=== PATIENT | male | born 1955 | race Caucasian/White ===

== ENCOUNTER 2020-04-09 19:25 | Emergency (ER) | payer SELFPAY ==
[2020-04-09 19:39] VITALS: BP 141/63
--- NOTE | 2020-04-09 21:28 | Event Note ---
ED Screening Note Date of service: 04/09/20 Time: 21:23 ED Screening Note: Patient presents with complaints of chest pain today Brought in by EMS from a quick trip Patient states he no longer wishes to be assessed for his chest pain and that his chest pain has resolved He denies any previous history of heart problems or MIs Reiterated to patient it is important for him to be assessed for his chest pain, patient continues to decline treatment Patient to sign out AMA This initial assessment/diagnostic orders/clinical plan/treatment(s) is/are subject to change based on patients health status, clinical progression and re- assessment by fellow clinical providers in the ED. Further treatment and workup at subsequent clinical providers discretion. Patient/guardian urged not to elope from the ED as their condition may be serious if not clinically assessed and managed. Initial orders include: Patient to sign out AMA
[2020-04-09 23:00] LABS: Basophils % (Auto) 0.6 % (0.0-1.8); Eosinophils # (Auto) 0.3 K/mm3 (0.0-0.4); Eosinophils % (Auto) 3.7 % (0.0-4.3); Hematocrit 39.7 % (35.5-45.6); Hemoglobin 12.9 gm/dl (11.8-15.2); Lymphocytes # (Auto) 1.5 K/mm3 (1.2-5.4); Lymphocytes % (Auto) 17.7 % (13.4-35.0); Mean Corpuscular HGB Conc 32 % (32-34); Mean Corpuscular Volume 94 fl (84-94); Monocytes # (Auto) 0.9 K/mm3 (0.0-0.8); Monocytes % (Auto) 10.1 % (0.0-7.3); Platelet Count 216 K/mm3 (140-440); Red Blood Count 4.22 M/mm3 (3.65-5.03); Red Cell Distribution Width 16.9 % (13.2-15.2)
[2020-04-09 23:14] LABS: Calcium 8.7 mg/dL (8.4-10.2)
--- NOTE | 2020-04-10 03:04 | Emergency Department Report ---
ED General Adult HPI - General Chief complaint: Weakness Stated complaint: GENERAL WEAKNESS Time Seen by Provider: 04/09/20 21:20 Source: patient, EMS Mode of arrival: Stretcher Limitations: No Limitations - History of Present Illness Initial comments: 64-year-old male presents to the emergency room reporting that he felt hot and weak and had chest pain all day. Patient states he has no chest pain now and reports he feels better and wants to go home. It was reported by EMS that they picked him up at a [facility]. Patient has a past medical history of a CVA [place] end-stage renal disease congestive heart failure and a DVT. Patient states that he has not been able to take his evening medications since he has been here. Patient had recently been seen by his primary care provider at [facility] on 04/04/2020. -: This morning Location: chest Severity scale (0 -10): 0 Associated Symptoms: chest pain, weakness. denies: cough, diaphoresis, headaches, loss of appetite, malaise, nausea/vomiting, shortness of breath, syncope Treatments Prior to Arrival: none - Related Data Allergies Allergy/AdvReac Type Severity Reaction Status Date / Time bee venom protein (honey bee) Allergy Hives Verified 04/09/20 19:41 ED Review of Systems ROS: Stated complaint: GENERAL WEAKNESS Other details as noted in HPI ED Past Medical Hx - Past Medical History Previous Medical History?: Yes Hx CVA: Yes - Surgical History Past Surgical History?: Yes Hx Pacemaker: Yes - Social History Smoking Status: Current Some Day Smoker Substance Use Type: None ED Physical Exam - General Limitations: No Limitations General appearance: alert, in no apparent distress - Head Head exam: Present: atraumatic, normocephalic - Eye Eye exam: Present: normal appearance - ENT ENT exam: Present: mucous membranes moist - Neck Neck exam: Present: normal inspection - Respiratory Respiratory exam: Present: normal lung sounds bilaterally. Absent: respiratory distress - Cardiovascular Cardiovascular Exam: Present: regular rate, normal rhythm. Absent: systolic murmur, diastolic murmur, rubs, gallop - GI/Abdominal GI/Abdominal exam: Present: soft, normal bowel sounds - Rectal Rectal exam: Present: deferred - Extremities Exam Extremities exam: Present: normal inspection - Back Exam Back exam: Present: normal inspection - Neurological Exam Neurological exam: Present: alert, oriented X3, normal gait - Expanded Neurological Exam Expanded Cranial nerves: EOM's Intact: Normal, Gag Reflex: Normal, Tongue Deviation: Normal, Nystagmus: Normal, Facial Sensation: Normal, Facial Palsy with Forehead Movement: Normal, Facial Palsy without Forehead Movement: Normal Cerebellar function: Finger to Nose: Normal, Heel to Beal: Normal, Romberg: Normal Upper motor neuron: Jarod Neglect: Normal, Pronator Drift: Normal, Sensory Extinction: Normal Motor strength exam: RUE: 4, LUE: 4, RLE: 4, LLE: 4 Best Eye Response ([place]): (4) open spontaneously Best Motor Response (Lois): (6) obeys commands Best Verbal Response ([place]): (5) oriented Lois Total: 15 - Psychiatric Psychiatric exam: Present: normal affect, normal mood - Skin Skin exam: Present: warm, dry, intact, ecchymosis (Multiple areas on his forearm). Absent: rash ED Course Vital Signs 04/09/20 04/10/20 19:34 03:05 Temperature 98.5 F Pulse Rate 65 71 Respiratory 18 17 Rate Blood Pressure 141/63 O2 Sat by Pulse 96 99 Oximetry ED Medical Decision Making - Lab Data Result diagrams: 04/09/20 22:27 04/09/20 22:27 - Medical Decision Making 64-year-old male presents to the emergency room reporting that he felt hot and weak and had chest pain all day. Patient states he has no chest pain now and reports he feels better and wants to go home. It was reported by EMS that they picked him up at a [facility]. Patient has a past medical history of a CVA [place] end-stage renal disease congestive heart failure and a DVT. Patient states that he has not been able to take his evening medications since he has been here. Patient had recently been seen by his primary care provider at [facility] on 04/04/2020. Patient currently has no chest pain no shortness of breath requesting to be discharged to go home. Patient's vital signs are stable. Exam is within normal limits. Patient signed AMA. Critical care attestation.: If time is entered above; I have spent that time in minutes in the direct care of this critically ill patient, excluding procedure time. ED Disposition Clinical Impression: Chest pain Disposition: DC-07 LEFT AGAINST MED ADVICE Is pt being admited?: No Does the pt Need Aspirin: No Condition: Stable Instructions: Chest Pain (ED) Referrals: AMY BERNARD MD [Primary Care Provider] - 3-5 Days Forms: AMA Form
== END 2020-04-10 03:06 | disposition left against medical advice (07) ==
LOC: ED 19:25
DX: R07.89 Other chest pain (principal); R53.1 Weakness; F17.200 Nicotine dependence, unspecified, uncomplicated; Z86.73 Personal history of transient ischemic attack (TIA), and cerebral infarction without residual deficits
CPT/HCPCS: 36415; 80048; 85025

== ENCOUNTER 2020-05-03 19:56 | Emergency (ER) | payer MEDICAID ==
--- NOTE | 2020-05-03 20:21 | Event Note ---
ED Screening Note ED Screening Note: here 8-8 called 911 for hip pain when they got there he co cp angry and constricted wont give info told me he fell today on l hip and it is broke and then added his heart hearts ill appearing not kept This initial assessment/diagnostic orders/clinical plan/treatment(s) is/are subject to change based on patients health status, clinical progression and re- assessment by fellow clinical providers in the ED. Further treatment and workup at subsequent clinical providers discretion. Patient/guardian urged not to elope from the ED as their condition may be serious if not clinically assessed and managed. Initial orders include: labs ua xray
--- NOTE | 2020-05-03 21:23 | XRay Report ---
LEFT HIP 2 VIEW(S) INDICATION / CLINICAL INFORMATION: pain sp fall COMPARISON: None available. FINDINGS: BONES / JOINT(S): No acute fracture or subluxation. 'S mild left hip joint space narrowing. SOFT TISSUES: Moderate atherosclerotic calcifications throughout the visualized iliac and femoral art eries bilaterally. ADDITIONAL FINDINGS: None. Signer Name: Tiana Johnson MD Signed: 05/03/2020 9:18 PM Workstation Name: [id number]
--- NOTE | 2020-05-03 21:36 | XRay Report ---
CHEST 2 VIEWS INDICATION / CLINICAL INFORMATION: cp. COMPARISON: 04/28/20 FINDINGS: SUPPORT DEVICES: None. HEART / MEDIASTINUM: Stable. Moderate size retrocardiac hiatal hernia is unchanged. LUNGS / PLEURA: No significant pulmonary or pleural abnormality. No pneumothorax. ADDITIONAL FINDINGS: No significant additional findings. IMPRESSION: 1. No acute findings. 2. Moderate-sized hilar hernia is unchanged. Signer Name: Tiana Johnson MD Signed: 05/03/2020 9:31 PM Workstation Name: [id number]
[2020-05-03 21:44] LABS: Basophils # (Auto) 0.1 K/mm3 (0.0-0.1); Basophils % (Auto) 1.1 % (0.0-1.8); Eosinophils # (Auto) 0.5 K/mm3 (0.0-0.4); Eosinophils % (Auto) 6.1 % (0.0-4.3); Hematocrit 36.6 % (35.5-45.6); Hemoglobin 12.3 gm/dl (11.8-15.2); Lymphocytes # (Auto) 1.3 K/mm3 (1.2-5.4); Lymphocytes % (Auto) 15.8 % (13.4-35.0); Mean Corpuscular HGB Conc 34 % (32-34); Mean Corpuscular Volume 93 fl (84-94); Monocytes # (Auto) 0.8 K/mm3 (0.0-0.8); Monocytes % (Auto) 9.5 % (0.0-7.3); Platelet Count 268 K/mm3 (140-440); Red Blood Count 3.93 M/mm3 (3.65-5.03)
[2020-05-03 21:51] LABS: Alanine Aminotransferase 11 units/L (7-56); Albumin 3.8 g/dL (3.9-5); BUN/Creatinine Ratio 18; Blood Urea Nitrogen 22 mg/dL (9-20); Calcium 9.6 mg/dL (8.4-10.2); Hemolysis Index 30
[2020-05-04] MEDS ORDERED: ACETAMINOPHEN 325 MG TAB PO ONE (02:44)
[2020-05-04 02:50] VITALS: BP 140/74
--- NOTE | 2020-05-04 02:52 | Emergency Department Report ---
ED Fall HPI - General Chief Complaint: Extremity Injury, Lower Stated Complaint: LEFT HIP PAIN Time Seen by Provider: 05/03/20 20:21 Source: patient Mode of arrival: Ambulatory - History of Present Illness Initial Comments: Patient is a 64-year-old male who presents emergency room after a slip and fall that occurred earlier today. He states that he slipped on the concrete and fell. He states he is having right shoulder pain, left hip pain, he reports he hit his head. He denies any headache, loss of consciousness, vomiting, numbness, weakness, vision changes, neck pain, back pain. He is ambulatory. He denies any chest pain, shortness of breath, lightheadedness, dizziness. He denies any symptoms prior to the fall just states that he slipped. Past medical history of CVA and AR. Allergy to bee venom. - Related Data Home Medications Medication Instructions Recorded Confirmed Last Taken AtorvaSTATin [Lipitor] 40 mg PO QHS 04/30/20 04/30/20 Unknown Clopidogrel [Plavix] 75 mg PO QDAY 04/30/20 04/30/20 Unknown Rivaroxaban [Xarelto] 20 mg PO DAILY 04/30/20 04/30/20 Unknown donepeziL [Aricept] 5 mg PO QHS 04/30/20 04/30/20 Unknown Previous Rx's Medication Instructions Recorded Last Taken Type Methimazole [Tapazole] 5 mg PO Q12H #30 tablet 05/02/20 Unknown Rx Metoprolol [Lopressor TAB] 25 mg PO BID #60 tablet 05/02/20 Unknown Rx Acetaminophen [Tylenol] 650 mg PO Q8HR PRN #20 capsule 05/04/20 Unknown Rx Allergies Allergy/AdvReac Type Severity Reaction Status Date / Time bee venom protein (honey bee) Allergy Hives Verified 04/09/20 19:41 ED Review of Systems ROS: Stated complaint: LEFT HIP PAIN Other details as noted in HPI Comment: All other systems reviewed and negative ED Past Medical Hx - Past Medical History Previous Medical History?: Yes Hx CVA: Yes Hx Congestive Heart Failure: No Hx Diabetes: No Hx Asthma: No - Surgical History Hx Pacemaker: Yes - Social History Smoking Status: Current Every Day Smoker Substance Use Type: Alcohol - Medications Home Medications: Home Medications Medication Instructions Recorded Confirmed Last Taken Type AtorvaSTATin [Lipitor] 40 mg PO QHS 04/30/20 04/30/20 Unknown History Clopidogrel [Plavix] 75 mg PO QDAY 04/30/20 04/30/20 Unknown History Rivaroxaban [Xarelto] 20 mg PO DAILY 04/30/20 04/30/20 Unknown History donepeziL [Aricept] 5 mg PO QHS 04/30/20 04/30/20 Unknown History Methimazole [Tapazole] 5 mg PO Q12H #30 tablet 05/02/20 Unknown Rx Metoprolol [Lopressor TAB] 25 mg PO BID #60 tablet 05/02/20 Unknown Rx Acetaminophen [Tylenol] 650 mg PO Q8HR PRN #20 capsule 05/04/20 Unknown Rx ED Physical Exam - General Limitations: No Limitations General appearance: alert, in no apparent distress - Head Head exam: Present: atraumatic, normocephalic - Eye Eye exam: Present: normal appearance, PERRL, EOMI. Absent: periorbital swelling, periorbital tenderness Pupils: Present: normal accommodation - ENT ENT exam: Present: mucous membranes moist, other (no racoon eyes, no [place] signs) - Neck Neck exam: Present: normal inspection, full ROM. Absent: tenderness - Respiratory Respiratory exam: Present: normal lung sounds bilaterally. Absent: respiratory distress, wheezes, rales, rhonchi, stridor, chest wall tenderness, accessory muscle use, decreased breath sounds, prolonged expiratory - Cardiovascular Cardiovascular Exam: Present: regular rate, normal rhythm, normal heart sounds. Absent: systolic murmur, diastolic murmur, rubs, gallop - GI/Abdominal GI/Abdominal exam: Present: soft, normal bowel sounds. Absent: distended, tenderness, guarding, rebound, rigid - Extremities Exam Extremities exam: Present: other (mild right anterior shoulder ttp, FROM of the RUE, no sulcus sign, no deformity, clavicles are equal, no clavicular ttp, no bony ttp to the LLE, FROM of the LLE with mild discomfort upon full flexion of the hip, no deformity, no obvious joint laxity, pt is neurovascularly intact throughout) - Back Exam Back exam: Present: normal inspection, full ROM. Absent: paraspinal tenderness, vertebral tenderness - Neurological Exam Neurological exam: Present: alert, oriented X3, CN II-XII intact, normal gait. Absent: motor sensory deficit - Psychiatric Psychiatric exam: Present: normal affect, normal mood - Skin Skin exam: Present: warm, dry, intact ED Course Vital Signs 05/04/20 02:48 Temperature 99.1 F Pulse Rate 65 Respiratory 21 Rate Blood Pressure 140/74 [Right] O2 Sat by Pulse 100 Oximetry ED Medical Decision Making - Lab Data Result diagrams: 05/03/20 21:14 05/03/20 21:14 Lab Results 05/03/20 05/03/20 Range/Units 21:14 21:14 WBC 8.4 (4.5-11.0) K/mm3 RBC 3.93 (3.65-5.03) M/mm3 Hgb 12.3 (11.8-15.2) gm/dl Hct 36.6 (35.5-45.6) % MCV 93 (84-94) fl MCH 31 (28-32) pg MCHC 34 (32-34) % RDW 16.0 H (13.2-15.2) % Plt Count 268 (140-440) K/mm3 Lymph % (Auto) 15.8 (13.4-35.0) % [place] % (Auto) 9.5 H (0.0-7.3) % Eos % (Auto) 6.1 H (0.0-4.3) % Baso % (Auto) 1.1 (0.0-1.8) % Lymph # 1.3 (1.2-5.4) K/mm3 [place] # 0.8 (0.0-0.8) K/mm3 Eos # 0.5 H (0.0-0.4) K/mm3 Baso # 0.1 (0.0-0.1) K/mm3 Seg Neutrophils % 67.5 (40.0-70.0) % Seg Neutrophils # 5.6 (1.8-7.7) K/mm3 Sodium 140 (137-145) mmol/L Potassium 4.1 (3.6-5.0) mmol/L Chloride 102.3 (98-107) mmol/L Carbon Dioxide 23 (22-30) mmol/L Anion Gap 19 mmol/L BUN 22 H (9-20) mg/dL Creatinine 1.2 (0.8-1.3) mg/dL Estimated GFR > 60 ml/min BUN/Creatinine Ratio 18 % Glucose 113 H (75-100) mg/dL Calcium 9.6 (8.4-10.2) mg/dL Total Bilirubin 0.50 (0.1-1.2) mg/dL AST 18 (5-40) units/L ALT 11 (7-56) units/L Alkaline Phosphatase 92 (35-129) units/L Troponin T < 0.010 (0.00-0.029) ng/mL Total Protein 6.6 D (6.3-8.2) g/dL Albumin 3.8 L (3.9-5) g/dL Albumin/Globulin Ratio 1.4 % - EKG Data EKG shows normal: sinus rhythm, axis, intervals Rate: normal - EKG Data 05/04/20 03:00 no STEMI - Radiology Data Radiology results: report reviewed LEFT HIP 2 VIEW(S) INDICATION / CLINICAL INFORMATION: pain sp fall COMPARISON: None available. FINDINGS: BONES / JOINT(S): No acute fracture or subluxation. 'S mild left hip joint space narrowing. SOFT TISSUES: Moderate atherosclerotic calcifications throughout the visualized iliac and femoral arteries bilaterally. ADDITIONAL FINDINGS: None. Signer Name: Tiana Johnson MD Signed: 05/03/2020 9:18 PM Workstation Name: [id number] Transcribed By: MARTIN Dictated By: Connor Johnson MD Electronically Authenticated By: Connor Johnson MD Signed Date/Time: 05/03/202117 DD/ 16 TD/TT: CHEST 2 VIEWS INDICATION / CLINICAL INFORMATION: cp. COMPARISON: 04/28/20 FINDINGS: SUPPORT DEVICES: None. HEART / MEDIASTINUM: Stable. Moderate size retrocardiac hiatal hernia is unchanged. LUNGS / PLEURA: No significant pulmonary or pleural abnormality. No pneumothorax. ADDITIONAL FINDINGS: No significant additional findings. IMPRESSION: 1. No acute findings. 2. Moderate-sized hilar hernia is unchanged. Signer Name: Tiana Johnson MD Signed: 05/03/2020 9:31 PM Workstation Name: [id number] Transcribed By: DT Dictated By: Connor Johnson MD Electronically Authenticated By: Connor Johnson MD Signed Date/Time: 05/03/202130 DD/ 29 TD/TT: CT head/brain wo con INDICATION / CLINICAL INFORMATION: Patient fell and hit head. Positive L.O.C.. TECHNIQUE: All CT scans at this location are performed using CT dose reduction for ALARA by means of automated exposure control. COMPARISON: 05/01/2020 FINDINGS: Cerebral atrophy is present with microvascular angiopathy. No mass or mass effect is seen. There is no evidence of intracranial large. No large area of infarction is identified. No fracture is seen. Visualized paranasal sinuses are clear. IMPRESSION: Cerebral atrophy with microvascular angiopathy. No acute findings Signer Name: Onesimo Burk MD FACR Signed: 05/04/2020 3:10 AM Workstation Name: [id number] Transcribed By: MS Dictated By: Onesimo Burk MD Electronically Authenticated By: Onesimo Burk MD Signed Date/Time: 05/04/20309 DD/ 7 TD/TT: RIGHT SHOULDER 3 VIEWS INDICATION / CLINICAL INFORMATION: fall, right shoulder pain. COMPARISON: None available. FINDINGS: No significant skeletal abnormality Signer Name: Onesimo Burk MD FACR Signed: 05/04/2020 3:51 AM Workstation Name: [id number] Transcribed By: MS Dictated By: Onesimo Burk MD Electronically Authenticated By: Onesimo Burk MD Signed Date/Time: 05/04/20350 DD/ 0 TD/TT: - Medical Decision Making Patient is a 64-year-old male who presents emergency room after a slip and fall that occurred earlier today. He states that he slipped on the concrete and fell. He states he is having right shoulder pain, left hip pain, he reports he hit his head. He denies any headache, loss of consciousness, vomiting, numbness, weakness, vision changes, neck pain, back pain. He is ambulatory. He denies any chest pain, shortness of breath, lightheadedness, dizziness. He denies any symptoms prior to the fall just states that he slipped. Past medical history of CVA and AR. Allergy to bee venom. VSS. on exam: mild right anterior shoulder ttp, FROM of the RUE, no sulcus sign, no deformity, clavicles are equal, no clavicular ttp, no bony ttp to the LLE, FROM of the LLE with mild discomfort upon full flexion of the hip, no deformity, no obvious joint laxity, pt is neurovascularly intact throughout, no focal neuro deficits, no midline or paraspinal C-spine, T-spine, L-spine tenderness palpation, no step-offs, no deformities, no raccoon eyes, no [place] signs. XR left hip: BONES / JOINT(S): No acute fracture or subluxation. 'S mild left hip joint space narrowing. SOFT TISSUES: Moderate atherosclerotic calcifications throughout the visualized iliac and femoral arteries bilaterally. ADDITIONAL FINDINGS: None. CXR: 1. No acute findings. 2. Moderate-sized hilar hernia is unchanged. CT head: Cerebral atrophy with microvascular angiopathy. No acute findings. XR right shoulder: No significant skeletal abnormality. appears pt may have told triage provider about chest pain, but he denies CP. labs are normal. EKG shows no STEMI and no acute ischemia. pt given tylenol and symptoms improved. pt given prescription for tylenol. advised pt Please take medication as prescribed. May use ice pack, heating pad, rest, Epson salt bath. Follow-up with a primary care doctor for reexamination. Return to emergency room for any new or worsening symptoms. Critical care attestation.: If time is entered above; I have spent that time in minutes in the direct care of this critically ill patient, excluding procedure time. ED Disposition Clinical Impression: Left hip pain Fall Qualifiers: Encounter type: initial encounter Qualified Code(s): W19.XXXA - Unspecified fall, initial encounter Right shoulder pain Qualifiers: Chronicity: acute Qualified Code(s): M25.511 - Pain in right shoulder Minor head injury Qualifiers: Encounter type: initial encounter Qualified Code(s): S09.90XA - Unspecified injury of head, initial encounter Disposition: DC- TO HOME OR SELFCARE Is pt being admited?: No Does the pt Need Aspirin: No Condition: Stable Instructions: Muscle Strain (ED), Arthralgia (ED) Additional Instructions: Please take medication as prescribed. May use ice pack, heating pad, rest, Epson salt bath. Follow-up with a primary care doctor for reexamination. Return to emergency room for any new or worsening symptoms. Prescriptions: Acetaminophen [Tylenol] 650 mg PO Q8HR PRN #20 capsule PRN Reason: pain Referrals: PRIMARY CARE, [Primary Care Provider] - 2-3 Days Print Language: SAMI
--- NOTE | 2020-05-04 03:14 | Cat Scan Report ---
CT head/brain wo con INDICATION / CLINICAL INFORMATION: Patient fell and hit head. Positive L.O.C.. TECHNIQUE: All CT scans at this location are performed using CT dose reduction for ALARA by means of automated e xposure control. COMPARISON: 05/01/2020 FINDINGS: Cerebral atrophy is present with microvascular angiopathy. No mass or mass effect is seen. There is n o evidence of intracranial large. No large area of infarction is identified. No fracture is seen. Vis ualized paranasal sinuses are clear. IMPRESSION: Cerebral atrophy with microvascular angiopathy. No acute findings Signer Name: Onesimo Burk MD FACR Signed: 05/04/2020 3:10 AM Workstation Name: [id number]
--- NOTE | 2020-05-04 03:56 | XRay Report ---
RIGHT SHOULDER 3 VIEWS INDICATION / CLINICAL INFORMATION: fall, right shoulder pain. COMPARISON: None available. FINDINGS: No significant skeletal abnormality Signer Name: Onesimo Burk MD FACR Signed: 05/04/2020 3:51 AM Workstation Name: [id number]
== END 2020-05-04 16:35 | disposition home or self-care (01) ==
LOC: ED 19:56
DX: S09.90XA Unspecified injury of head, initial encounter (principal); M25.511 Pain in right shoulder; M25.552 Pain in left hip; F17.200 Nicotine dependence, unspecified, uncomplicated; Z79.899 Other long term (current) drug therapy; Z88.8 Allergy status to other drugs, medicaments and biological substances; W17.89XA Other fall from one level to another, initial encounter; Y93.89 Activity, other specified; Y92.89 Other specified places as the place of occurrence of the external cause; Y99.8 Other external cause status
CPT/HCPCS: 36415; 70450; 71046; 80053; 84484; 85025; 93005

== ENCOUNTER 2020-05-13 00:19 | Emergency (ER) | payer MEDICAID ==
[2020-05-13 01:28] LABS: Basophils % (Auto) 0.5 % (0.0-1.8); Eosinophils # (Auto) 0.2 K/mm3 (0.0-0.4); Eosinophils % (Auto) 2.6 % (0.0-4.3); Hematocrit 35.5 % (35.5-45.6); Lymphocytes # (Auto) 1.4 K/mm3 (1.2-5.4); Lymphocytes % (Auto) 17.8 % (13.4-35.0); Mean Corpuscular HGB Conc 34 % (32-34); Mean Corpuscular Volume 94 fl (84-94); Monocytes # (Auto) 0.7 K/mm3 (0.0-0.8); Monocytes % (Auto) 9.5 % (0.0-7.3); Platelet Count 282 K/mm3 (140-440); Red Blood Count 3.77 M/mm3 (3.65-5.03); Red Cell Distribution Width 16.6 % (13.2-15.2)
--- NOTE | 2020-05-13 01:42 | XRay Report ---
CHEST 1 VIEW INDICATION / CLINICAL INFORMATION: Chest Pain. COMPARISON: 05/03/2020 FINDINGS: SUPPORT DEVICES: Pacemaker device is stable in position. HEART / MEDIASTINUM: No significant abnormality. LUNGS / PLEURA: No significant pulmonary or pleural abnormality. No pneumothorax. ADDITIONAL FINDINGS: Probable hiatal hernia. IMPRESSION: 1. No acute findings. No interval change. Signer Name: Zeinab Palmer MD Signed: 05/13/2020 1:37 AM Workstation Name: [id number]
[2020-05-13 01:51] LABS: BUN/Creatinine Ratio 17; Blood Urea Nitrogen 26 mg/dL (9-20); Calcium 9.3 mg/dL (8.4-10.2); Hemolysis Index 12
--- NOTE | 2020-05-13 03:03 | Emergency Department Report ---
ED Chest Pain HPI - General Chief Complaint: Chest Pain Stated Complaint: RT SIDE PAIN PUI?: No Time Seen by Provider: 05/13/20 02:56 Source: patient, EMS Mode of arrival: Ambulatory Limitations: Physical Limitation - History of Present Illness Initial Comments: Patient is a 64-year-old male that presents emergency room with complaints of right-sided chest pain. Patient states his chest pain started this morning. Patient states he was seen at [facility] and evaluated and discharged. Patient states that his pain worsened and so he called the ambulance to bring him to the hospital for evaluation. Patient states the pain is a 9 out of 10 and is in his right chest. Patient states the pain is better with rest and wor se with movement and palpation. Patient denies fever chills. Patient denies shortness of breath. Patient denies nausea and vomiting. Patient denies anxiety. Patient denies diaphoresis. Patient states he was instructed to go to his primary care and he was on his way to see his primary care and he felt the pain was too sharp. Patient denies recent travel. Patient denies recent international travel. Patient denies exposure to the novel coronavirus. Patient denies sick contacts. Patient denies fever and chills. Patient denies cough. Patient denies diarrhea. Patient denies coming in contact with anybody with symptoms of the novel coronavirus. MD Complaint: chest pain -: Sudden Pain Location: right chest Pain Radiation: RUE Severity: severe Severity scale (0 -10): 9 Quality: sharp Consistency: constant Improves With: rest Worsens With: palpation, movement re: denies: nausea, vomting, diaphoresis, dyspnea, sense of impending doom Other Symptoms: denies: cough, fever, syncope, rash, acid taste in mouth, leg swelling, palpitations, burping Treatments Prior to Arrival: none Aspirin use within the Past 7 Days: (1) Yes - Related Data On Oral Contraceptives: No Home Medications Medication Instructions Recorded Confirmed Last Taken AtorvaSTATin [Lipitor] 40 mg PO QHS 04/30/20 04/30/20 Unknown Clopidogrel [Plavix] 75 mg PO QDAY 04/30/20 04/30/20 Unknown Rivaroxaban [Xarelto] 20 mg PO DAILY 04/30/20 04/30/20 Unknown donepeziL [Aricept] 5 mg PO QHS 04/30/20 04/30/20 Unknown Previous Rx's Medication Instructions Recorded Last Taken Type Methimazole [Tapazole] 5 mg PO Q12H #30 tablet 05/02/20 Unknown Rx Metoprolol [Lopressor TAB] 25 mg PO BID #60 tablet 05/02/20 Unknown Rx Acetaminophen [Tylenol] 650 mg PO Q8HR PRN #20 capsule 05/04/20 Unknown Rx Dexamethasone [Taperdex] 1.5 mg PO DAILY 7 Days #1 tab.ds.pk 05/13/20 Unknown Rx Allergies Allergy/AdvReac Type Severity Reaction Status Date / Time bee venom protein (honey bee) Allergy Hives Verified 04/09/20 19:41 Heart Score - HEART Score History: Slightly suspicious EKG: Normal Age: 45-65 Risk factors: No known risk factors Troponin: < normal limit HEART Score: 1 ED Review of Systems ROS: Stated complaint: RT SIDE PAIN Other details as noted in HPI Constitutional: denies: chills, fever Eyes: denies: eye pain, eye discharge, vision change ENT: denies: ear pain, throat pain Respiratory: denies: cough, shortness of breath, wheezing Cardiovascular: chest pain. denies: palpitations Endocrine: no symptoms reported Gastrointestinal: denies: abdominal pain, nausea, diarrhea Genitourinary: denies: urgency, dysuria Musculoskeletal: denies: back pain, joint swelling, arthralgia Skin: denies: rash, lesions Neurological: denies: headache, weakness, paresthesias Psychiatric: denies: anxiety, depression Hematological/Lymphatic: denies: easy bleeding, easy bruising ED Past Medical Hx - Past Medical History Previous Medical History?: Yes Hx CVA: Yes Hx Congestive Heart Failure: No Hx Diabetes: No Hx Asthma: No - Surgical History Past Surgical History?: Yes Hx Pacemaker: Yes - Family History Family history: no significant - Social History Smoking Status: Current Every Day Smoker Substance Use Type: Alcohol, Cocaine, Marijuana - Medications Home Medications: Home Medications Medication Instructions Recorded Confirmed Last Taken Type AtorvaSTATin [Lipitor] 40 mg PO QHS 04/30/20 04/30/20 Unknown History Clopidogrel [Plavix] 75 mg PO QDAY 04/30/20 04/30/20 Unknown History Rivaroxaban [Xarelto] 20 mg PO DAILY 04/30/20 04/30/20 Unknown History donepeziL [Aricept] 5 mg PO QHS 04/30/20 04/30/20 Unknown History Methimazole [Tapazole] 5 mg PO Q12H #30 tablet 05/02/20 Unknown Rx Metoprolol [Lopressor TAB] 25 mg PO BID #60 tablet 05/02/20 Unknown Rx Acetaminophen [Tylenol] 650 mg PO Q8HR PRN #20 capsule 05/04/20 Unknown Rx Dexamethasone [Taperdex] 1.5 mg PO DAILY 7 Days #1 tab.ds.pk 05/13/20 Unknown Rx ED Physical Exam - General Limitations: Physical Limitation General appearance: alert, in no apparent distress - Head Head exam: Present: atraumatic, normocephalic - Eye Eye exam: Present: normal appearance - ENT ENT exam: Present: mucous membranes moist - Neck Neck exam: Present: normal inspection - Respiratory Respiratory exam: Present: normal lung sounds bilaterally, chest wall tenderness (Right-sided chest pain with palpation and reproduces symptoms.). Absent: res piratory distress - Cardiovascular Cardiovascular Exam: Present: regular rate, normal rhythm. Absent: systolic murmur, diastolic murmur, rubs, gallop - GI/Abdominal GI/Abdominal exam: Present: soft, normal bowel sounds. Absent: distended, tenderness, guarding - Rectal Rectal exam: Present: deferred - Extremities Exam Extremities exam: Present: normal inspection - Back Exam Back exam: Present: normal inspection - Neurological Exam Neurological exam: Present: alert, oriented X3 - Psychiatric Psychiatric exam: Present: normal affect, normal mood - Skin Skin exam: Present: warm, dry, intact, normal color. Absent: rash ED Course Vital Signs 05/13/20 00:40 Temperature 97.9 F Pulse Rate 81 Respiratory 20 Rate Blood Pressure 168/92 O2 Sat by Pulse 97 Oximetry - Reevaluation(s) Reevaluation #1: I discussed all results and clinical findings with patient. I discussed plan of care with patient. Patient agrees with plan of care. Patient is stable for discharge. Patient will be discharged home. Patient given discharge instructions. Patient voiced understanding of discharge instructions. Patient's admission sent over to our local [facility] for re-stratification. 05/13/20 03:06 CLAUDETTE score - Claudette Score Age > 65: (0) No Aspirin use within the Past 7 Days: (0) No 3 or more CAD Risk Factors: (0) No 2 or more Angina events in past 24 hrs: (0) No Known CAD with more than 50% Stenosis: (0) No Elevated Cardiac Markers: (0) No ST Deviation Greater than 0.5mm: (0) No CLAUDETTE Score: 0 ED Medical Decision Making - Lab Data Result diagrams: 05/13/20 01:05 05/13/20 01:05 - EKG Data -: EKG Interpreted by Me EKG shows normal: sinus rhythm, axis, intervals, QRS complexes, ST-T waves Rate: normal - Radiology Data Radiology results: report reviewed, image reviewed interpreted by me: Chest x-ray: No acute findings, normal lungs, no pneumonia, no pneumothorax, no rib fractures. CHEST 1 VIEW INDICATION / CLINICAL INFORMATION: Chest Pain. COMPARISON: 05/03/2020 FINDINGS: SUPPORT DEVICES: Pacemaker device is stable in position. HEART / MEDIASTINUM: No significant abnormality. LUNGS / PLEURA: No significant pulmonary or pleural abnormality. No pneumothorax. ADDITIONAL FINDINGS: Probable hiatal hernia. IMPRESSION: 1. No acute findings. No interval change. - Medical Decision Making Patient is a 64-year-old male that presents emergency room with complaints of right-sided chest pain. Patient had reproducible chest pain on examination. Patient had labs done which were essentially unremarkable. Patient's chest x- ray was negative. Patient EKG was negative. Patient stable for discharge. Patient's clinical findings are consistent with right-sided chest pain and chest wall pain and chest wall sprain. Patient will be discharged home. Patient was information sent over to our local [facility] for risk stratification. - Differential Diagnosis Chest pain, chest wall pain, chest wall sprain. Critical care attestation.: If time is entered above; I have spent that time in minutes in the direct care of this critically ill patient, excluding procedure time. ED Disposition Clinical Impression: Right-sided chest wall pain Chest pain Qualifiers: Chest pain type: unspecified Qualified Code(s): R07.9 - Chest pain, unspecified Sprain of chest wall Qualifiers: Encounter type: initial encounter Qualified Code(s): S23.8XXA - Sprain of other specified parts of thorax, initial encounter CKD (chronic kidney disease) Qualifiers: Chronic kidney disease stage: unspecified stage Qualified Code(s): N18.9 - Chronic kidney disease, unspecified Disposition: - TO HOME OR SELFCARE Is pt being admited?: No Does the pt Need Aspirin: No Condition: Stable Instructions: Chest Pain (ED), Costochondritis (ED) Additional Instructions: Patient to follow-up with primary care in 2 to 3 days. Patient to follow-up with cardiology in 2 to 3 days. Patient to rest. Patient to increase water. Patient to avoid strenuous exercise or heavy lifting until cleared by cardiology. Patient to take Tylenol as needed for pain. Patient to take meds as directed. Patient to return to the ER if condition worsens, changes or new symptoms arise. Prescriptions: Dexamethasone [Taperdex] 1.5 mg PO DAILY 7 Days #1 tab.ds.pk Referrals: PRIMARY CARE, [Primary Care Provider] - 2-3 Days CHELA LEDESMA MD [Staff Physician] - 2-3 Days ROB SEBASTIAN MD [Staff Physician] - 2-3 Days Time of Disposition: 03:11
[2020-05-13 03:23] VITALS: BP 172/85
== END 2020-05-13 03:45 | disposition home or self-care (01) ==
LOC: ED 00:19
DX: S23.8XXA Sprain of other specified parts of thorax, initial encounter (principal); F17.200 Nicotine dependence, unspecified, uncomplicated; F12.10 Cannabis abuse, uncomplicated; F14.10 Cocaine abuse, uncomplicated; Z86.73 Personal history of transient ischemic attack (TIA), and cerebral infarction without residual deficits; Z79.899 Other long term (current) drug therapy; Z91.030 Bee allergy status; X58.XXXA Exposure to other specified factors, initial encounter; Y93.89 Activity, other specified; Y92.89 Other specified places as the place of occurrence of the external cause; Y99.8 Other external cause status
CPT/HCPCS: 36415; 71045; 80048; 84484; 85025; 93005

== ENCOUNTER 2020-09-14 12:08 | Emergency (ER) | payer MEDICARE ==
[2020-09-14 12:19] VITALS: BP 137/56
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
[2020-09-14] MEDS ORDERED: NEOMY 3.5 MG/BACIT 400 UNITS/POLY B 5000 UNITS/GM OINT PACKET TP ONE (14:17)
[2020-09-14] MEDS ORDERED: ACETAMINOPHEN 325 MG TAB PO ONE (14:17)
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
== END 2020-09-14 15:45 | disposition home or self-care (01) ==
LOC: ED 12:08
DX: S09.90XA Unspecified injury of head, initial encounter (principal); M54.2 Cervicalgia; F17.200 Nicotine dependence, unspecified, uncomplicated; F12.10 Cannabis abuse, uncomplicated; F14.10 Cocaine abuse, uncomplicated; Z79.899 Other long term (current) drug therapy; Z91.030 Bee allergy status; Z86.73 Personal history of transient ischemic attack (TIA), and cerebral infarction without residual deficits; Y08.89XA Assault by other specified means, initial encounter; Y93.89 Activity, other specified; Y92.89 Other specified places as the place of occurrence of the external cause; Y99.8 Other external cause status
CPT/HCPCS: 70450; 72125; 99284; A6250

== ENCOUNTER 2020-11-03 20:07 | Emergency (ER) | payer MEDICARE ==
[2020-11-03 21:00] VITALS: BP 150/61
[2020-11-03] MEDS ORDERED: ACETAMINOPHEN 500 MG TAB PO ONE (21:05)
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
== END 2020-11-03 23:35 | disposition home or self-care (01) ==
LOC: ED 20:07
DX: S06.0X9A Concussion with loss of consciousness of unspecified duration, initial encounter (principal); R51.9 Headache, unspecified; I25.2 Old myocardial infarction; F17.200 Nicotine dependence, unspecified, uncomplicated; Z86.73 Personal history of transient ischemic attack (TIA), and cerebral infarction without residual deficits; Z98.890 Other specified postprocedural states; Z79.899 Other long term (current) drug therapy; Z91.030 Bee allergy status; W22.8XXA Striking against or struck by other objects, initial encounter; Y93.89 Activity, other specified; Y92.89 Other specified places as the place of occurrence of the external cause; Y99.8 Other external cause status
CPT/HCPCS: 70450

== ENCOUNTER 2021-02-17 20:29 | Emergency (ER) | payer MEDICARE ==
[2021-02-18] MEDS ORDERED: ASPIRIN 325 MG TAB PO ONE (01:04)
[2021-02-18 01:34] LABS: Hematocrit 33.6 % (35.5-45.6); Hemoglobin 10.7 gm/dl (11.8-15.2); Mean Corpuscular HGB Conc 32 % (32-34); Mean Corpuscular Volume 88 fl (84-94); Platelet Count 312 K/mm3 (140-440); Red Blood Count 3.83 M/mm3 (3.65-5.03)
[2021-02-18 01:35] LABS: Red Cell Distribution Width 24.9 % (13.2-15.2)
[2021-02-18 01:58] LABS: Alanine Aminotransferase 11 units/L (7-56); Albumin 3.9 g/dL (3.9-5); BUN/Creatinine Ratio 15; Blood Urea Nitrogen 21 mg/dL (9-20); Calcium 9.6 mg/dL (8.4-10.2); Hemolysis Index 14
--- NOTE | 2021-02-18 01:58 | XRay Report ---
CHEST 2 VIEWS INDICATION: chestpain. COMPARISON: 05/13/2020 FINDINGS: Support devices: Pacing device located left hemithorax electrode tips right atrium and. Heart: Within normal limits. Lungs: No acute air space or interstitial disease. Pleura: No significant pleural effusion. No pneumothorax. Additional findings: Large hiatal hernia is present. IMPRESSION: 1. No acute findings. Signer Name: Art Mcadams MD Signed: 02/18/2021 1:54 AM Workstation Name: [id number]
[2021-02-18 02:48] LABS: Anisocytosis 2+; Ovalocytes Few; Poikilocytosis 1+; Total Cells Counted 100
[2021-02-18 02:49] LABS: Platelet Estimate Consistent w Auto
--- NOTE | 2021-02-18 14:18 | Cat Scan Report ---
CT head/brain wo con INDICATION: Syncope, fall, closed head injury. TECHNIQUE: Head CT without contrast. All CT scans at this location are performed using CT dose reduction for ALA RA by means of automated exposure control. COMPARISON: Head CT on 11/03/2020 FINDINGS: There is no evidence of hemorrhage, hydrocephalus, brain edema, or mass effect/mass lesion. There is unchanged moderate chronic small vessel ischemic change in the cerebral white matter. Ventricular and cisternal size appears appropriate for age. The included paranasal sinuses and mastoid air cells are clear. The orbits appear unremarkable. IMPRESSION: 1. No acute intracranial abnormality or adverse change from prior exams. Signer Name: Maco Cueto MD Signed: 02/18/2021 2:14 PM Workstation Name: [id number]
--- NOTE | 2021-02-18 15:11 | Emergency Department Report ---
ED General Adult HPI - General Chief complaint: Chest Pain Stated complaint: NEEDS LIVING PLACEMENT Time Seen by Provider: 02/18/21 13:15 Source: patient, EMS Mode of arrival: Stretcher Limitations: Physical Limitation - History of Present Illness Initial comments: Patient is a 65-year-old male with a past medical history of hypertension and coronary artery disease who states he is compliant with his medications presenting initially last night for need for housing placement. Patient was started on chest pain protocol because he stated after not being brought back immediately that he was having chest pain. There was a prolonged times to put the patient in a room secondary to nursing shortage. Was a saw the patient was able to do a full history and physical the patient states that he was kicked out of the apartment that he currently resides in. He does have all of his belongings with him. He states that he was walking up a hill when he fell and struck his head. He did not mention this last night. Patient states he had a syncopal episode. Since being. Patient states he was having some chest pain last night but this is now resolved. He denies any cough cold congestion fevers or chills. Patient states he needs help with his living arrangements and would like to talk to a social services analyst. - Related Data Home Medications Medication Instructions Recorded Confirmed Last Taken AtorvaSTATin [Lipitor] 40 mg PO QHS 04/30/20 04/30/20 Unknown Clopidogrel [Plavix] 75 mg PO QDAY 04/30/20 04/30/20 Unknown Rivaroxaban [Xarelto] 20 mg PO DAILY 04/30/20 04/30/20 Unknown donepeziL [Aricept] 5 mg PO QHS 04/30/20 04/30/20 Unknown Previous Rx's Medication Instructions Recorded Last Taken Type Methimazole [Tapazole] 5 mg PO Q12H #30 tablet 05/02/20 Unknown Rx Metoprolol [Lopressor TAB] 25 mg PO BID #60 tablet 05/02/20 Unknown Rx Acetaminophen [Tylenol] 650 mg PO Q8HR PRN #20 capsule 05/04/20 Unknown Rx Dexamethasone [Taperdex] 1.5 mg PO DAILY 7 Days #1 tab.ds.pk 05/13/20 Unknown Rx Acetaminophen [Tylenol] 650 mg PO Q8HR PRN #20 capsule 09/14/20 Unknown Rx Allergies Allergy/AdvReac Type Severity Reaction Status Date / Time bee venom protein (honey bee) Allergy Hives Verified 04/09/20 19:41 ED Review of Systems ROS: Stated complaint: NEEDS LIVING PLACEMENT Other details as noted in HPI Comment: All other systems reviewed and negative ED Past Medical Hx - Past Medical History Previous Medical History?: Yes Hx CVA: Yes Hx Heart Attack/AMI: Yes Hx Congestive Heart Failure: No Hx Diabetes: No Hx Asthma: No Additional medical history: A-fib - Surgical History Past Surgical History?: Yes Hx Pacemaker: Yes - Social History Smoking Status: Current Every Day Smoker Substance Use Type: None - Medications Home Medications: Home Medications Medication Instructions Recorded Confirmed Last Taken Type AtorvaSTATin [Lipitor] 40 mg PO QHS 04/30/20 04/30/20 Unknown History Clopidogrel [Plavix] 75 mg PO QDAY 04/30/20 04/30/20 Unknown History Rivaroxaban [Xarelto] 20 mg PO DAILY 04/30/20 04/30/20 Unknown History donepeziL [Aricept] 5 mg PO QHS 04/30/20 04/30/20 Unknown History Methimazole [Tapazole] 5 mg PO Q12H #30 tablet 05/02/20 Unknown Rx Metoprolol [Lopressor TAB] 25 mg PO BID #60 tablet 05/02/20 Unknown Rx Acetaminophen [Tylenol] 650 mg PO Q8HR PRN #20 capsule 05/04/20 Unknown Rx Dexamethasone [Taperdex] 1.5 mg PO DAILY 7 Days #1 tab.ds.pk 05/13/20 Unknown Rx Acetaminophen [Tylenol] 650 mg PO Q8HR PRN #20 capsule 09/14/20 Unknown Rx ED Physical Exam - General Limitations: Physical Limitation General appearance: alert, in no apparent distress - Head Head exam: Present: atraumatic, normocephalic, other (Patient is states he struck the frontal portion of his head on the ground. There is no evidence of any swelling abrasion laceration or tenderness to palpation) - Eye Eye exam: Present: normal appearance, PERRL, EOMI - ENT ENT exam: Present: normal exam, mucous membranes moist - Neck Neck exam: Present: normal inspection - Respiratory Respiratory exam: Present: normal lung sounds bilaterally. Absent: respiratory distress, wheezes, rales, rhonchi - Cardiovascular Cardiovascular Exam: Present: regular rate, normal rhythm, normal heart sounds. Absent: systolic murmur, diastolic murmur, rubs, gallop - GI/Abdominal GI/Abdominal exam: Present: soft, normal bowel sounds. Absent: distended, tenderness, guarding, rebound - Rectal Rectal exam: Present: deferred - Extremities Exam Extremities exam: Present: normal inspection - Back Exam Back exam: Present: normal inspection - Neurological Exam Neurological exam: Present: alert, oriented X3 - Psychiatric Psychiatric exam: Present: normal affect, normal mood - Skin Skin exam: Present: warm, dry, intact, normal color. Absent: rash ED Course Vital Signs 02/18/21 02/18/21 00:53 00:55 Temperature 95.3 F L 98.3 F Pulse Rate 76 Respiratory 18 Rate Blood Pressure 156/70 O2 Sat by Pulse 95 Oximetry ED Medical Decision Making - Lab Data Result diagrams: 02/18/21 01:06 02/18/21 01:06 Lab Results 02/18/21 02/18/21 02/18/21 Range/Units 01:06 01:06 05:02 WBC 9.2 (4.5-11.0) K/mm3 RBC 3.83 (3.65-5.03) M/mm3 Hgb 10.7 L (11.8-15.2) gm/dl Hct 33.6 L (35.5-45.6) % MCV 88 (84-94) fl MCH 28 (28-32) pg MCHC 32 (32-34) % RDW 24.9 H (13.2-15.2) % Plt Count 312 (140-440) K/mm3 Add Manual Diff Complete Total Counted 100 Seg Neuts % (Manual) 71.0 H (40.0-70.0) % Lymphocytes % (Manual) 17.0 (13.4-35.0) % Monocytes % (Manual) 8.0 H (0.0-7.3) % Eosinophils % (Manual) 3.0 (0.0-4.3) % Basophils % (Manual) 1.0 (0.0-1.8) % Nucleated RBC % Not Reportable Seg Neutrophils # Man 6.5 (1.8-7.7) K/mm3 Band Neutrophils # 0.0 K/mm3 Lymphocytes # (Manual) 1.6 (1.2-5.4) K/mm3 Abs React Lymphs (Man) 0.0 K/mm3 Monocytes # (Manual) 0.7 (0.0-0.8) K/mm3 Eosinophils # (Manual) 0.3 (0.0-0.4) K/mm3 Basophils # (Manual) 0.1 (0.0-0.1) K/mm3 Metamyelocytes # 0.0 K/mm3 Myelocytes # 0.0 K/mm3 Promyelocytes # 0.0 K/mm3 Blast Cells # 0.0 K/mm3 WBC Morphology Not Reportable Hypersegmented Neuts Not Reportable Hyposegmented Neuts Not Reportable Hypogranular Neuts Not Reportable Smudge Cells Not Reportable Toxic Granulation Not Reportable Toxic Vacuolation Not Reportable Dohle Bodies Not Reportable Pelger-Huet Anomaly Not Reportable Geronimo Rods Not Reportable Platelet Estimate Consistent w auto Clumped Platelets Not Reportable Plt Clumps, EDTA Not Reportable Large Platelets Not Reportable Giant Platelets Not Reportable Platelet Satelliting Not Reportable Plt Morphology Comment Not Reportable RBC Morphology Not Reportable Dimorphic RBCs Not Reportable Polychromasia Not Reportable Hypochromasia Not Reportable Poikilocytosis 1+ Anisocytosis 2+ Microcytosis Not Reportable Macrocytosis Not Reportable Spherocytes Not Reportable Pappenheimer Bodies Not Reportable Sickle Cells Not Reportable Target Cells Not Reportable Tear Drop Cells Not Reportable Ovalocytes Few Helmet Cells Not Reportable [place] Bodies Not Reportable [place] Rings Not Reportable Edgardo Cells Not Reportable Bite Cells Not Reportable Crenated Cell Not Reportable Elliptocytes Few Acanthocytes (Spur) Not Reportable Rouleaux Not Reportable Hemoglobin C Crystals Not Reportable Schistocytes Not Reportable Malaria parasites Not Reportable Luis Bodies Not Reportable Hem Pathologist Commnt No Sodium 140 (137-145) mmol/L Potassium 4.0 (3.6-5.0) mmol/L Chloride 104.0 (98-107) mmol/L Carbon Dioxide 26 (22-30) mmol/L Anion Gap 14 mmol/L BUN 21 H (9-20) mg/dL Creatinine 1.4 H (0.8-1.3) mg/dL Estimated GFR 51 ml/min BUN/Creatinine Ratio 15 % Glucose 109 H (75-100) mg/dL Calcium 9.6 (8.4-10.2) mg/dL Total Bilirubin 0.20 (0.1-1.2) mg/dL AST 12 (5-40) units/L ALT 11 (7-56) units/L Alkaline Phosphatase 114 (35-129) units/L Troponin T < 0.010 < 0.010 (0.00-0.029) ng/mL Total Protein 6.6 (6.3-8.2) g/dL Albumin 3.9 (3.9-5) g/dL Albumin/Globulin Ratio 1.4 % 02/18/21 Range/Units 07:09 WBC (4.5-11.0) K/mm3 RBC (3.65-5.03) M/mm3 Hgb (11.8-15.2) gm/dl Hct (35.5-45.6) % MCV (84-94) fl MCH (28-32) pg MCHC (32-34) % RDW (13.2-15.2) % Plt Count (140-440) K/mm3 Add Manual Diff Total Counted Seg Neuts % (Manual) (40.0-70.0) % Lymphocytes % (Manual) (13.4-35.0) % Monocytes % (Manual) (0.0-7.3) % Eosinophils % (Manual) (0.0-4.3) % Basophils % (Manual) (0.0-1.8) % Nucleated RBC % Seg Neutrophils # Man (1.8-7.7) K/mm3 Band Neutrophils # K/mm3 Lymphocytes # (Manual) (1.2-5.4) K/mm3 Abs React Lymphs (Man) K/mm3 Monocytes # (Manual) (0.0-0.8) K/mm3 Eosinophils # (Manual) (0.0-0.4) K/mm3 Basophils # (Manual) (0.0-0.1) K/mm3 Metamyelocytes # K/mm3 Myelocytes # K/mm3 Promyelocytes # K/mm3 Blast Cells # K/mm3 WBC Morphology Hypersegmented Neuts Hyposegmented Neuts Hypogranular Neuts Smudge Cells Toxic Granulation Toxic Vacuolation Dohle Bodies Pelger-Huet Anomaly Geronimo Rods Platelet Estimate Clumped Platelets Plt Clumps, EDTA Large Platelets Giant Platelets Platelet Satelliting Plt Morphology Comment RBC Morphology Dimorphic RBCs Polychromasia Hypochromasia Poikilocytosis Anisocytosis Microcytosis Macrocytosis Spherocytes Pappenheimer Bodies Sickle Cells Target Cells Tear Drop Cells Ovalocytes Helmet Cells [place] Bodies [place] Rings Deep [place] Cells Bite Cells Crenated Cell Elliptocytes Acanthocytes (Spur) Rouleaux Hemoglobin C Crystals Schistocytes Malaria parasites Luis Bodies Hem Pathologist Commnt Sodium (137-145) mmol/L Potassium (3.6-5.0) mmol/L Chloride (98-107) mmol/L Carbon Dioxide (22-30) mmol/L Anion Gap mmol/L BUN (9-20) mg/dL Creatinine (0.8-1.3) mg/dL Estimated GFR ml/min BUN/Creatinine Ratio % Glucose (75-100) mg/dL Calcium (8.4-10.2) mg/dL Total Bilirubin (0.1-1.2) mg/dL AST (5-40) units/L ALT (7-56) units/L Alkaline Phosphatase (35-129) units/L Troponin T < 0.010 (0.00-0.029) ng/mL Total Protein (6.3-8.2) g/dL Albumin (3.9-5) g/dL Albumin/Globulin Ratio % - EKG Data -: EKG Interpreted by Mo - EKG Data Interpretation: LVH 02/18/21 15:13 EKG shows sinus rhythm with a rate of 81. [place] is normal intervals are normal. Has occasional PACs. No ST segment elevation or depressions. Time of interpretation is 1 AM. Interpreted as a normal EKG except for LVH - Radiology Data [facility] [address] [place] [address] Cat Scan Report Signed Patient: SANDI ERNANDEZ MR#: [id number] 8 : 1955 Acct:[id number] Age/Sex: 65 / M ADM Date: 02/17/21 Loc: ED Attending Dr: Ordering Physician: CUCA ONOFRE MD Date of Service: 02/18/21 Procedure(s): CT head/brain wo con Accession Number(s): [id number] cc: CUCA ONOFRE MD CT head/brain wo con INDICATION: Syncope, fall, closed head injury. TECHNIQUE: Head CT without contrast. All CT scans at this location are performed using CT dose reduction for ALARA by means of automated exposure control. COMPARISON: Head CT on 11/03/2020 FINDINGS: There is no evidence of hemorrhage, hydrocephalus, brain edema, or mass effect/mass lesion. There is unchanged moderate chronic small vessel ischemic change in the cerebral white matter. Ventricular and cisternal size appears appropriate for age. The included paranasal sinuses and mastoid air cells are clear. The orbits appear unremarkable. IMPRESSION: 1. No acute intracranial abnormality or adverse change from prior exams. Signer Name: Maco Cueto MD Signed: 02/18/2021 2:14 PM Workstation Name: [id number] CHEST 2 VIEWS INDICATION: chestpain. COMPARISON: 05/13/2020 FINDINGS: Support devices: Pacing device located left hemithorax electrode tips right atrium and. Heart: Within normal limits. Lungs: No acute air space or interstitial disease. Pleura: No significant pleural effusion. No pneumothorax. Additional findings: Large hiatal hernia is present. IMPRESSION: 1. No acute findings. Signer Name: Art Mcadams MD Signed: 02/18/2021 1:54 AM Workstation Name: [id number] - Medical Decision Making Patient is a 65-year-old male who is presenting with multiple complaints. Regarding the patient's chest discomfort his heart score is 3 making him low risk for an acute event. EKG shows no acute process. Has had 3 - troponins throughout the night thus ruling him out for acute NV. Patient will be given follow-up with cardiology for further management. Patient states he struck his head. There is no evidence of any external trauma however the patient is on Xarelto and Plavix. Did CT the patient's head that showed no acute process. Case management has been consulted the [facility]U about giving him a list of shelters but the patient is stable for discharge. Critical care attestation.: If time is entered above; I have spent that time in minutes in the direct care of this critically ill patient, excluding procedure time. ED Disposition Clinical Impression: Atypical chest pain, Closed head injury, Homeless Disposition: DC-01 TO HOME OR SELFCARE Is pt being admited?: No Does the pt Need Aspirin: No Condition: Stable Instructions: Nonspecific Chest Pain, Adult, Stress, Adult, Head Injury, Adult, [id number] Referrals: AMY BERNARD MD [Primary Care Provider] - 3-5 Days CHRIS BREEN MD [Staff Physician] - 3-5 Days Time of Disposition: 15:16 HEART Score - HEART Score History: Slightly suspicious EKG: Normal Age: 45-65 Risk factors: > 3 risk factors or hx of atherosclerotic disease Troponin: Troponin T < 0.010 ng/mL (0.00-0.029) 02/18/21 07:09 Troponin: < normal limit HEART Score: 3
[2021-02-18 18:12] VITALS: BP 158/92
--- NOTE | 2021-02-20 21:31 | Electrocardiograph Report ---
[facility] Test Date: 2021-02-18 Test Time: 00:59:13 Pat Name: SANDI ERNANDEZ Department: Room: Gender: M [employer]: OSCAR : 1955 Requested By: ED DOC Order Number: [id number] Reading MD: Michael Mcqueen Measurements Intervals [place] Rate: 81 P: -2 LA: 201 QRS: 44 QRSD: 97 T: 73 QT: 405 QTc: 471 Interpretive Statements Sinus rhythm Atrial premature complex Consider left ventricular hypertrophy No previous ECG available for comparison Electronically Signed On 02-20-2021 21:31:17 EDT by Michael Mcqueen
== END 2021-02-18 15:32 | disposition home or self-care (01) ==
LOC: ED 20:29
DX: S09.90XA Unspecified injury of head, initial encounter (principal); R07.89 Other chest pain; I25.2 Old myocardial infarction; F17.200 Nicotine dependence, unspecified, uncomplicated; Z59.0 Homelessness; Z86.73 Personal history of transient ischemic attack (TIA), and cerebral infarction without residual deficits; Z79.899 Other long term (current) drug therapy; Z88.8 Allergy status to other drugs, medicaments and biological substances; W22.8XXA Striking against or struck by other objects, initial encounter; Y93.89 Activity, other specified; Y92.89 Other specified places as the place of occurrence of the external cause; Y99.8 Other external cause status
CPT/HCPCS: 36415; 70450; 71046; 80053; 84484; 85007; 85025; 93005

== ENCOUNTER 2021-10-05 08:23 | Emergency (ER) | payer MEDICARE ==
[2021-10-05 08:32] VITALS: BP 146/89
--- NOTE | 2021-10-05 08:41 | Emergency Department Report ---
ED General Adult HPI - General Chief complaint: Weakness Stated complaint: WEAKNESS/HOMELESSNESS Time Seen by Provider: 10/05/21 08:34 Source: patient Mode of arrival: Stretcher Limitations: No Limitations - History of Present Illness Initial comments: Patient was brought in by ambulance because of weakness. EMS reports that they were called for weakness. He apparently was at a [facility]. He was sitting upright. He was able to use his walker and move around. He was reportedly homeless. Patient arrives here and states that he fell and hit his head. EMS states that that was never part of the report when they 1st got on scene. He later stated that he had fallen and hit his head. There was no visible sign of trauma. He tells me that he was asked to shower. He states that he cannot stand to take a shower because of his prior stroke. He has a walker that he uses. At that point, the [facility] kicked him out. He then states that he p assed out. Apparently police were called and he does not know by home. Police called fire. Fire called paramedics. Paramedics called EMS. The patient was transported here. This is all story from the patient. Patient states that he does not want to go back to the [facility]. It is "a hell hole." Severity scale (0 -10): 0 - Related Data Home Medications Medication Instructions Recorded Confirmed Last Taken AtorvaSTATin [Lipitor] 40 mg PO QHS 04/30/20 10/04/21 Unknown Apixaban [Eliquis] 5 mg PO BID 10/04/21 10/04/21 Unknown Ferrous Sulfate [Iron 325 MG] 325 mg PO TIDWM 10/04/21 10/04/21 Unknown Metoprolol Xl [Metoprolol 25 mg PO QDAY 10/04/21 10/04/21 Unknown SUCCINATE ER TAB] Polyethylene Glycol 3350 [Miralax] 17 gm PO QDAY 10/04/21 10/04/21 Unknown Sennosides [Senna] 8.6 mg PO QHS 10/04/21 10/04/21 Unknown methIMAzole [Methimazole] 5 mg PO QDAY 10/04/21 10/04/21 Unknown Allergies Allergy/AdvReac Type Severity Reaction Status Date / Time bee venom protein (honey bee) Allergy Hives Verified 10/05/21 08:32 ED Review of Systems ROS: Stated complaint: WEAKNESS/HOMELESSNESS Other details as noted in HPI Comment: All other systems reviewed and negative Constitutional: denies: fever Eyes: denies: eye pain ENT: denies: throat pain Respiratory: denies: cough Cardiovascular: denies: chest pain Endocrine: denies: increased urine Gastrointestinal: denies: vomiting Genitourinary: denies: dysuria Musculoskeletal: denies: back pain Skin: denies: rash Neurological: as per HPI, weakness. denies: headache Hematological/Lymphatic: denies: easy bruising ED Past Medical Hx - Past Medical History Previous Medical History?: Yes Hx CVA: Yes Hx Heart Attack/AMI: Yes Hx Congestive Heart Failure: No Hx Diabetes: No Hx Asthma: No Hx COPD: Yes Additional medical history: A-fib - Surgical History Hx Pacemaker: Yes Additional Surgical History: Homeless - Social History Smoking Status: Current Every Day Smoker - Medications Home Medications: Home Medications Medication Instructions Recorded Confirmed Last Taken Type AtorvaSTATin [Lipitor] 40 mg PO QHS 04/30/20 10/04/21 Unknown History Apixaban [Eliquis] 5 mg PO BID 10/04/21 10/04/21 Unknown History Ferrous Sulfate [Iron 325 MG] 325 mg PO TIDWM 10/04/21 10/04/21 Unknown History Metoprolol Xl [Metoprolol 25 mg PO QDAY 10/04/21 10/04/21 Unknown History SUCCINATE ER TAB] Polyethylene Glycol 3350 [Miralax] 17 gm PO QDAY 10/04/21 10/04/21 Unknown History Sennosides [Senna] 8.6 mg PO QHS 10/04/21 10/04/21 Unknown History methIMAzole [Methimazole] 5 mg PO QDAY 10/04/21 10/04/21 Unknown History ED Physical Exam - General Limitations: No Limitations, Physical Limitation (Prior stroke and uses a walker), Other (Pulse ox noted and normal) General appearance: alert, in no apparent distress, other (Disheveled) - Head Head exam: Present: atraumatic, normocephalic - Eye Eye exam: Present: normal appearance, EOMI - ENT ENT exam: Present: normal external ear exam - Neck Neck exam: Present: normal inspection - Respiratory Respiratory exam: Absent: respiratory distress - Cardiovascular Cardiovascular Exam: Absent: JVD - GI/Abdominal GI/Abdominal exam: Present: soft - Extremities Exam Extremities exam: Present: normal capillary refill - Neurological Exam Neurological exam: Present: alert, oriented X3, other (Residual deficit from stroke. Patient uses a walker) - Psychiatric Psychiatric exam: Present: normal affect, normal mood - Skin Skin exam: Present: warm ED Course Vital Signs 10/05/21 08:25 Temperature 97.2 F L Pulse Rate 90 Respiratory 18 Rate Blood Pressure 146/89 [Right] O2 Sat by Pulse 97 Oximetry - Reevaluation(s) Reevaluation #1: 10/05/21 08:39 EMS was met. Old records reviewed. Accu-Chek was ordered. Patient will be discharged. He states that he needs to be placed in a [facility]. I have informed him that we do not provide that kind of service. He can go back to the [facility] and work on getting transferred or he can be discharged. ED Medical Decision Making - Medical Decision Making Patient presents by ambulance secondary to weakness. He has changes story for EMS and for me. He in essence is homeless and would like to be in the hospital. He would like to be placed in another [facility]. That is not a professor of social work that we provide in the emergency department. He does not have any medical emergency that would require admission. EMC has been completed. He has chronic weakness related to the stroke which is not new. Critical Care Time: No Critical care attestation.: If time is entered above; I have spent that time in minutes in the direct care of this critically ill patient, excluding procedure time. ED Disposition Clinical Impression: Weakness, Homeless Disposition: HOME / SELF CARE / HOMELESS Is pt being admited?: No Condition: Stable Instructions: Weakness, [id number] Additional Instructions: Follow-up with your regular doctor. Take your medications as prescribed. Return for problems. Go back to the [facility] or find a [facility]. Referrals: PRIMARY CAREMD [Referring] - 3-5 Days JENNIFER IGNACIO MD [Staff Physician] - 3-5 Days
== END 2021-10-05 10:53 | disposition home or self-care (01) ==
LOC: ED 08:23
DX: R53.1 Weakness (principal); Z59.00 Homelessness unspecified
CPT/HCPCS: 82962; 99283

== ENCOUNTER 2021-10-14 10:22 | Emergency (ER) | payer MEDICARE ==
[2021-10-14 10:42] VITALS: BP 130/90
[2021-10-14] MEDS ORDERED: ASPIRIN 325 MG TAB PO ONE (11:14)
[2021-10-14] MEDS ORDERED: METOPROLOL TARTRATE 5 MG/5 ML INJ IV ONE (11:15)
--- NOTE | 2021-10-14 11:24 | Emergency Department Report ---
ED General Adult HPI - General Chief complaint: Medical Clearance Stated complaint: chest pain Time Seen by Provider: 10/14/21 11:04 Source: EMS Mode of arrival: Stretcher Limitations: No Limitations - History of Present Illness Initial comments: 66-year-old male with a past medical history of A. fib which is rate controlled with, medication which he cannot recall as well as Eliquis presents emerged department complaining of having palpitations and feeling occasional lightheadedness and shortness of breath after being off of his medication for the last 10 days. States he was discharged from [facility] about 2 weeks ago for a head head injury and stayed in a hotel without any medications which gave rise to the issues today. Reports no hemoptysis no hematemesis no hematochezia he reports no syncope no illicit drug use no known history of any renal or liver disease. Radiation: non-radiation Severity scale (0 -10): 1 Consistency: constant Improves with: none Worsens with: none Associated Symptoms: chest pain. denies: loss of appetite, malaise, shortness of breath, syncope, weakness Treatments Prior to Arrival: none - Related Data Home Medications Medication Instructions Recorded Confirmed Last Taken AtorvaSTATin [Lipitor] 40 mg PO QHS 04/30/20 10/04/21 Unknown Ferrous Sulfate [Iron 325 MG] 325 mg PO TIDWM 10/04/21 10/04/21 Unknown Polyethylene Glycol 3350 [Miralax] 17 gm PO QDAY 10/04/21 10/04/21 Unknown Sennosides [Senna] 8.6 mg PO QHS 10/04/21 10/04/21 Unknown methIMAzole [Methimazole] 5 mg PO QDAY 10/04/21 10/04/21 Unknown Previous Rx's Medication Instructions Recorded Last Taken Type Apixaban [Eliquis] 5 mg PO BID #30 10/14/21 Unknown Rx Metoprolol Xl [Metoprolol 25 mg PO QDAY #30 10/14/21 Unknown Rx SUCCINATE ER TAB] Allergies Allergy/AdvReac Type Severity Reaction Status Date / Time bee venom protein (honey bee) Allergy Hives Verified 10/05/21 08:32 ED Review of Systems ROS: Stated complaint: chest pain Other details as noted in HPI Comment: All other systems reviewed and negative ED Past Medical Hx - Past Medical History Hx CVA: Yes Hx Heart Attack/AMI: Yes Hx Congestive Heart Failure: No Hx Diabetes: No Hx Asthma: No Hx COPD: Yes Additional medical history: A-fib - Surgical History Hx Pacemaker: Yes Additional Surgical History: Homeless - Social History Smoking Status: Current Every Day Smoker - Medications Home Medications: Home Medications Medication Instructions Recorded Confirmed Last Taken Type AtorvaSTATin [Lipitor] 40 mg PO QHS 04/30/20 10/04/21 Unknown History Ferrous Sulfate [Iron 325 MG] 325 mg PO TIDWM 10/04/21 10/04/21 Unknown History Polyethylene Glycol 3350 [Miralax] 17 gm PO QDAY 10/04/21 10/04/21 Unknown History Sennosides [Senna] 8.6 mg PO QHS 10/04/21 10/04/21 Unknown History methIMAzole [Methimazole] 5 mg PO QDAY 10/04/21 10/04/21 Unknown History Apixaban [Eliquis] 5 mg PO BID #30 10/14/21 Unknown Rx Metoprolol Xl [Metoprolol 25 mg PO QDAY #30 10/14/21 Unknown Rx SUCCINATE ER TAB] ED Physical Exam - General Limitations: No Limitations General appearance: alert, in no apparent distress, other (heavy tobacco scent) - Head Head exam: Present: atraumatic, normocephalic - Eye Eye exam: Present: normal appearance, PERRL, EOMI Pupils: Present: normal accommodation - ENT ENT exam: Present: normal exam, normal orophraynx, mucous membranes moist - Neck Neck exam: Present: normal inspection - Respiratory Respiratory exam: Present: normal lung sounds bilaterally, rhonchi. Absent: respiratory distress - Cardiovascular Cardiovascular Exam: Present: tachycardia, irregular rhythm. Absent: systolic murmur, diastolic murmur, rubs, gallop - GI/Abdominal GI/Abdominal exam: Present: soft, normal bowel sounds - Rectal Rectal exam: Present: deferred - Extremities Exam Extremities exam: Present: normal inspection - Back Exam Back exam: Present: normal inspection. Absent: CVA tenderness (R), CVA tenderne ss (L) - Neurological Exam Neurological exam: Present: alert, oriented X3, CN II-XII intact, normal gait - Psychiatric Psychiatric exam: Present: normal affect, normal mood - Skin Skin exam: Present: warm, dry, intact, normal color. Absent: rash ED Course Vital Signs 10/14/21 10:41 Temperature 97.9 F Pulse Rate 80 Respiratory 16 Rate Blood Pressure 130/90 [Right] O2 Sat by Pulse 98 Oximetry ED Medical Decision Making - Lab Data Result diagrams: 10/14/21 11:36 10/14/21 11:36 - EKG Data Rate: tachycardia - EKG Data Interpretation: other (Atrial fibrillation with RVR on initial presentation to the emergency department) 10/14/21 21:15 Upon discharge after receiving metoprolol EKG had changed to normal sinus rhythm with a heart rate of 79 - Medical Decision Making 66-year-old male smoker with a past medical history of atrial fibrillation has been out of his medication for the past 10 days presents to the emergency department presenting in acute atrial fibrillation with RVR. More likely due to his lack of medication as he did not respond to treatment of metoprolol maintaining stable sinus rhythm for hour and a half of the emergency department and was able to ambulate with no dizziness desaturations. Alternative etiology considered included acute coronary syndrome, valvular disease, myocarditis, endocarditis, dissection, COPD, pneumonia, alcohol or drug abuse, thyrotoxicosis, other acute emergent etiologies or shortness of shortness of breath were unlikely at this time. Critical care attestation.: If time is entered above; I have spent that time in minutes in the direct care of this critically ill patient, excluding procedure time. ED Disposition Clinical Impression: Atrial fibrillation Disposition: 01 HOME / SELF CARE / HOMELESS Is pt being admited?: No Does the pt Need Aspirin: No Condition: Stable Instructions: Atrial Fibrillation, Atrial Fibrillation, [id number] Additional Instructions: You were evaluated emergency department today for chest pain and palpitation. Your evaluation has shown evidence of atrial fibrillation with RVR which was treated with metoprolol and you did a conversion to normal sinus rhythm at 78. 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 Please schedule an appointment for follow-up with your primary care physician as soon as possible. Return to emergency department if you expands worsening uncontrolled chest pain, shortness of breath, lightheadedness, feeling faint, nausea, vomiting or any other concerning symptoms. Prescriptions: Apixaban [Eliquis] 5 mg PO BID #30 Metoprolol Xl [Metoprolol SUCCINATE ER TAB] 25 mg PO QDAY #30 Referrals: HEATHER FORD MD [Staff Physician] - 3-5 Days (Please follow-up with cardiology)
--- NOTE | 2021-10-14 11:53 | XRay Report ---
CHEST 2 VIEWS INDICATION / CLINICAL INFORMATION: Chest Pain. COMPARISON: One view of the chest from 09/30/2021. FINDINGS: SUPPORT DEVICES: Unchanged pacemaker. HEART / MEDIASTINUM: Stable. LUNGS / PLEURA: No significant pulmonary abnormality. No significant pleural effusion. No pneumothora x. ADDITIONAL FINDINGS: No significant additional findings. IMPRESSION: 1. No acute abnormality of the chest. Signer Name: Carter Estevez MD Signed: 10/14/2021 11:48 AM Workstation Name: [id number]
[2021-10-14 12:12] LABS: Hematocrit 46.4 % (35.5-45.6); Hemoglobin 14.7 gm/dl (11.8-15.2); Mean Corpuscular HGB Conc 32 % (32-34); Mean Corpuscular Volume 87 fl (84-94); Platelet Count 265 K/mm3 (140-440); Red Blood Count 5.33 M/mm3 (3.65-5.03); Red Cell Distribution Width 17.7 % (13.2-15.2)
[2021-10-14 12:22] LABS: INR 0.87 (0.87-1.13)
[2021-10-14 12:33] LABS: Eosinophils % (Auto) 0.2 % (0.0-4.3); Monocytes % (Auto) 15.9 % (0.0-7.3)
[2021-10-14 12:40] LABS: Alanine Aminotransferase 8 units/L (7-56); Albumin 3.8 g/dL (3.9-5); BUN/Creatinine Ratio 21; Blood Urea Nitrogen 25 mg/dL (9-20); Calcium 8.6 mg/dL (8.4-10.2); Hemolysis Index 3
[2021-10-14 12:57] LABS: Basophils % (Auto) 0.4 % (0.0-1.8); Lymphocytes # (Auto) 0.8 K/mm3 (1.2-5.4)
== END 2021-10-14 19:10 | disposition home or self-care (01) ==
LOC: ED 10:22
DX: I48.91 Unspecified atrial fibrillation (principal); Z86.73 Personal history of transient ischemic attack (TIA), and cerebral infarction without residual deficits; J44.9 Chronic obstructive pulmonary disease, unspecified; Z96.89 Presence of other specified functional implants; F17.200 Nicotine dependence, unspecified, uncomplicated; Z91.030 Bee allergy status
CPT/HCPCS: 36415; 71046; 80053; 84484; 85025; 85610; 93005; 96374; 99284; J9280